=== PATIENT | female | born 1950 | race Caucasian/White ===

== ENCOUNTER 2021-10-15 11:01 | Inpatient (IN) | payer MEDICARE ==
[~2021-10-15] VITALS: Ht 172.7 cm; Wt 102.5 kg
--- NOTE | ~2021-10-15 | EMS ---
[place] [address] EMS Patient Care Report Name: KATHARINE ROCA Room #: 202-P ADM IN M.R.#: [id number] Admission: 10/15/21 Attend Phys: Gigi Wray MD Discharge: Date of : 50 Report #: [id number] THIS REPORT FOR: //name// Report Transmitted: 10/16/2021 13:30 EMS Care Summary [place], [place] Incident [id number] @ 10/15/2021 10:12 Incident Location [address] [place] [address] Patient KATHARINE ROCA Female, 70 Years 1950 Patient Address [address] [place] [address] Patient History Sepsis, Patient Allergies No known allergies, Patient Medications None Reported, Chief Complaint General malaise Disposition Transported No Lights/[place] Reason Sick Person Transported To [facility] Narrative Dispatched to a private residence in regards to a sick. On arrival, I saw patient laying prone on the living room floor covered in feces and urine. Initial assessment revealed that patient was A&Ox3 and did not appear to be in respiratory distress. Patient's chief complaint was general malaise since [address] [address] EMS Patient Care Report Name: KATHARINE ROCA Room #: 202-P [facility] IN Ismael#: [id number] Admission: 10/15/21 Attend Phys: Gigi Wray MD Discharge: Date of : 50 Report #: [id number] . Sister in law stated that she came over to check on the patient today and called 911 due to patient's condition. Sister in law also stated that patient was last normal Wednesday and she was sick and has gotten worse. Physical assessment revealed that patient was cool pale and dry. Patient was placed onto our cot inside the lounge and was taken to the ambulance and was lifted inside. Treatment rendered was obtaining a complete set of baseline vital signs including a blood glucose reading, 3 lead ECG monitoring 12 lead ECG tracing, administered 2 doses of Adenosine, synchronized cardioverted, and administered a fluid bolus. Patient was transported emergency to [facility] and radio report was given en route. Patient care was transferred on arrival. Initial Vitals @10:41P: 192,R: 20,BP: 126/99,Pain: 0/10,GCS: 14,Glucose: 146,SpO2: 87,Revised Trauma: 12,MA Suspected: false @10:52P: 229,R: 20,BP: 75/56,Pain: 0/10,GCS: 14,SpO2: 90,Revised Trauma: 10,MA Suspected: false Assessments @11:07MENTAL:Person Oriented,Place Oriented,Time Oriented,Event Oriented,SKIN:HEENT:LUNG SOUNDS:ABDOMEN:PELVIS//GI:EXTREMITIES:PULSE:NEURO:No Abnormalities, Impression Generalized Weakness Procedures @PTAALS Assessment Response: UnchangedSucceeded @10:35 IV Therapy - Saline Lock 0cc (20 ga) Site: Antecubital-Left Response: UnchangedFailed @10:37 IV Therapy - Saline Lock 10cc (18 ga) Site: Antecubital-Right Response: UnchangedSucceeded @10:36 IV Therapy - Saline Lock 0cc (22 ga) Site: Hand-Left Response: UnchangedFailed @10:44 Oxygen FlowRate: 15 Device: Non Re-breather Mask (NRB) Response: UnchangedSucceeded @10:44 12-Lead ECG Response: UnchangedSucceeded @10:51 Adenosine - 12 Milligrams (mg) - Intravenous (IV) Response: Unchanged @10:46 Adenosine - 12 Milligrams (mg) - Intravenous (IV) Response: Unchanged @10:30 IV Bolus - Normal Saline (.9% NaCl) 100cc (18 ga) Site: Antecubital-Right Response: UnchangedSucceeded @10:54 Response: ImprovedSucceeded 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 OPERATOR,ALS Assessment,Response: UnchangedSucceeded, [place] [address] EMS Patient Care Report Name: KATHARINE ROCAN Room #: 202-P [facility] IN ..#: [id number] Admission: 10/15/21 Attend Phys: Gigi Wray MD Discharge: Date of : 50 Report #: [id number] 10:11,Call Received 10:11,Dispatch Notified 10:12,Dispatched 10:13,En Route 10:18,On Scene 10:20,At Patient 10:30,IV Bolus - Normal Saline (.9% NaCl) 100cc 18 ga Site: Antecubital-Right,Response: UnchangedSucceeded, 10:35,IV Therapy - Saline Lock 0cc 20 ga Site: Antecubital-Left,Response: UnchangedFailed, 10:36,IV Therapy - Saline Lock 0cc 22 ga Site: Hand-Left,Response: UnchangedFailed, 10:37,IV Therapy - Saline Lock 10cc 18 ga Site: Antecubital-Right,Response: UnchangedSucceeded, 10:41,BP: 126/99 M,PULSE: 192,RR: 20 R,SPO2: 87 Ox,ETCO2: ,B,PAIN: 0,GCS: 14, 10:44,12-Lead ECG,Response: UnchangedSucceeded, 10:44,Oxygen FlowRate: 15 Device: Non Re-breather Mask (NRB) Response: UnchangedSucceeded, 10:46,Adenosine - 12 Milligrams (mg) - Intravenous (IV),Response: Unchanged 10:47,Depart Scene 10:51,Adenosine - 12 Milligrams (mg) - Intravenous (IV),Response: Unchanged 10:52,BP: 75/56 M,PULSE: 229,RR: 20 R,SPO2: 90 Ox,ETCO2: ,BG: ,PAIN: 0,GCS: 14, 10:54,Response: ImprovedSucceeded, 10:55,At Destination 11:11,Call Closed Disclaimer v1.1 Copyright 2020 [employer] This EMS Care Summary contains data elements from the applicable legal record (which may be displayed differently). It is designed to provide pertinent information for the following purposes: continuity of care, clinical quality, and state data reporting. The complete legal record is available to ED staff and administrators of the receiving hospital in [employer] Patient Tracker. All data is provided "as is."
[2021-10-15 11:31] LABS: MCH 25.9 pg (26.0-34.0); MCHC 31.5 g/dL (28.0-37.0); MCV 82.2 fL (80.0-100.0); PLATELET COUNT 342 thou/uL (150-400); RBC 4.62 mil/uL (4.20-5.00); RDW 18.5 % (10.5-14.5); WBC 25.7 thou/uL (4.0-11.0)
[2021-10-15 11:52] LABS: CALCIUM 8.4 mg/dL (8.5-10.1); CREATININE 1.9 mg/dL (0.6-1.0); POTASSIUM 3.6 mmol/L (3.5-5.1)
[2021-10-15 11:55] LABS: URINE BILIRUBIN NEGATIVE (Negative); URINE BLOOD 3+ (Negative); URINE CLARITY CLOUDY; URINE COLOR YELLOW; URINE GLUCOSE-RANDOM* NEGATIVE (Negative); URINE KETONES NEGATIVE (Negative); URINE LEUKOCYTES-REFLEX 3+ (Negative); URINE NITRITE-REFLEX POSITIVE (Negative); URINE PROTEIN (DIPSTICK) 2+ (Negative); URINE UROBILINOGEN 0.2 E.U./dl (0.2-1.0)
[2021-10-15 12:03] LABS: ALBUMIN 2.7 g/dL (3.4-5.0); DIRECT BILIRUBIN 0.1 mg/dL (<0.1-0.2); TOTAL BILIRUBIN 0.4 mg/dL (0.2-1.0); TOTAL PROTEIN 6.6 g/dL (6.4-8.2)
[2021-10-15 12:14] LABS: BACTERIA-REFLEX >30 Many /HPF (None Seen); CASTS None Seen /LPF (None Seen); SQUAMOUS 0-3 Few /LPF (0-3); URINE WBC-REFLEX >25 Many /HPF (0-5)
[2021-10-15 12:15] LABS: CRYSTALS None Seen /LPF (None Seen); URINE RBC 1-2 Rare /HPF (NONE SEEN); WBC CLUMPS Packed (None Seen)
[2021-10-15 15:07] LABS: ABSOLUTE NEUTROPHILS 24.4 thou/uL (1.4-8.2)
[2021-10-15 15:09] LABS: ANISOCYTOSIS 2+
[2021-10-15 18:04] VITALS: BP 108/61
--- NOTE | 2021-10-15 18:28 | NUR ---
O2 DECREASED TO 4L
[2021-10-15 19:27] VITALS: BP 147/70
[2021-10-15] MEDS ORDERED: OMEPRAZOLE 20 M20 M1 PO (21:36)
[2021-10-15 23:59] VITALS: BP 125/85
[2021-10-16] VITALS (7 sets, daily range): BP systolic 121–155; BP diastolic 65–88
--- NOTE | 2021-10-16 03:45 | NUR ---
Pt is an ER admit who presented ER with UTI. Pt is alert and oriented. Pt had fallen at home and was on the floor for two days until found by family. Batres in place. Admission assessment and documentation completed. Pt is stable through the night. Scheduled meds administered to pt. No acute event in place. Continue to monitor, no further needs at this time.
--- NOTE | 2021-10-16 07:43 | EKG ---
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
--- NOTE | 2021-10-16 07:47 | EKG ---
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 10/16/21 0747 1 1 Mannie Lilly MD, FACC /EPI
[2021-10-16 08:08] LABS: ALBUMIN 2.1 g/dL (3.4-5.0); CALCIUM 8.1 mg/dL (8.5-10.1); CREATININE 1.8 mg/dL (0.6-1.0); POTASSIUM 3.6 mmol/L (3.5-5.1); TOTAL BILIRUBIN 0.4 mg/dL (0.2-1.0); TOTAL PROTEIN 5.9 g/dL (6.4-8.2)
--- NOTE | 2021-10-16 10:20 | 2DMMODE ---
[facility] [address] [place] [address] 2 D/M-MODE ECHOCARDIOGRAM Name: KATHARINE ROCA Room #: 202-P ADM IN M.R.#: [id number] Admission: 10/15/21 Attend Phys: Gigi Wray MD Discharge: Date of : 50 Report #: [id number] THIS REPORT FOR: cc: FAM - Family physician unknown FAM - Family physician unknown Olaf Saul MD ~ APPROVED REPORT Study performed: 10/16/2021 08:12:21 EXAM: Comprehensive 2D, Doppler, and color-flow Echocardiogram Patient Location: Bedside Room #: 202 Status: routine BSA: 2.20 HR: 81 bpm BP: 155/87 mmHg Rhythm: NSR/Frequent PACs. Other Information Study Quality: Adequate Indications Afib RVR. 2D Dimensions RVDd: 35.89 mm IVSd: 10.30 (7-11mm) LVOT Diam: 20.21 (18-24mm) LVDd: 44.62 mm PWd: 9.97 (7-11mm) LVDs: 30.32 (25-40mm) Left Atrium: 36.89 (27-40mm) Aortic Root: 32.39 mm Volumes Left Atrial Volume (Systole) Single Plane 4CH: 73.18 mL Single Plane 2CH: 55.85 mL LA ESV Index: 32.00 mL/m2 Aortic Valve AoV Peak Mark.: 1.73 m/s AO Peak Gr.: 12.66 mmHg LVOT Max P.61 mmHg LVOT Max V: 1.36 m/s MORGAN Vmax: 2.52 cm2 [facility] [address] [place] [address] 2 D/M-MODE ECHOCARDIOGRAM Name: KATHARINE ROCA Room #: 202-P [facility] IN .#: [id number] Admission: 10/15/21 Attend Phys: Gigi Wray MD Discharge: Date of : 50 Report #: [id number] Mitral Valve E/A Ratio: 1.1 MV Decel. Time: 298.06 ms MV E Max Mark.: 1.24 m/s MV A Mark.: 1.15 m/s MV PHT: 86.44 ms IVRT: 55.36 ms Pulmonary Valve PV Peak Mark.: 1.16 m/s PV Peak Gr.: 5.42 mmHg Tricuspid Valve TR Peak Mark.: 3.14 m/s RAP Estimate: 10.00 mmHg TR Peak Gr.: 40.00 mmHg PA Pressure: 50.00 mmHg Left Ventricle The left ventricle is normal size. There is normal LV segmental wall motion. There is normal left ventricular wall thickness. Left ventricular systolic function is normal. LVEF is 60%. Moderate diastolic dysfunction is present (pseudonormal filling). Right Ventricle The right ventricle is normal size. The right ventricular systolic function is normal. Atria The left atrium size is normal. The right atrium size is normal. Aortic Valve Aortic valve is mildly calcified. No aortic regurgitation is present. There is no aortic valvular stenosis. Mitral Valve The mitral valve is normal in structure. Mild mitral regurgitation. Tricuspid Valve The tricuspid valve is normal in structure. Trace tricuspid regurgitation. Estimated PAP is 50mmHg. Pulmonic Valve Pulmonic valve is poorly visualized. [facility] [address] [place] [address] 2 D/M-MODE ECHOCARDIOGRAM Name: KATHARINE ROCA Room #: 202-P [facility] IN .R.#: [id number] Admission: 10/15/21 Attend Phys: Gigi Wray MD Discharge: Date of : 50 Report #: [id number] Great Vessels The aortic root is normal in size. Ascending aorta is not well visualized. IVC is normal in size and collapses <50% with inspiration. Pericardium There is no pericardial effusion. <Conclusion> The left ventricle is normal size. There is normal left ventricular wall thickness. Left ventricular systolic function is normal. Moderate diastolic dysfunction is present (pseudonormal filling). The right ventricle is normal size. The left atrium size is normal. Aortic valve is mildly calcified. Mild mitral regurgitation. Trace tricuspid regurgitation. Estimated PAP is 50mmHg. <ELECTRONICALLY SIGNED> By: Olaf Saul MD 10/16/21 1020 1020 1020 Olaf Saul MD /MARILIA
--- NOTE | 2021-10-16 14:38 | NUR ---
Case opened to follow for dc planning. District Or District Office Director visited with the pt at bedside. She is alert and orientedx 3 and reports feeling a little better. 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 She is normally indep with gait and adl's and has a little dog at home. She has one step to enter her home and does not use any dme. She has a rwalker and a w/c if needed. She reports a bad rt knee that makes her walk "stiff". She lives alone and has a son and sister in law locally that are supportive. She orders all her groceries and house hold items from [employer] and does not get out much. She does not have a Pcp. She has no hh or snf history. Possible need for hh or snf discussed as well as locating a pcp for f/u care. She is open to all of the above as long as they accept her ins plan. Referral to Greg SÁNCHEZ, appt setup with Dr. GONZALEZ at [facility] for 10/29/21 at 1:30pm and referral faxed to Mariela Amaro [facility]. PT/OT evals are pending. Pt's son Kennedy has called in but is not coming up to visit as he is not feeling well. Pt is being treated for UTI/Sepsis and is on iv atb/ivf. O2 now down to 2liters. Anticipated dc 2-3 days pending her progress.
--- NOTE | 2021-10-16 18:23 | NUR ---
Pt was A&0x4, VS stable and afebrile throughout shift. Pt was at times confused and expressed feeling overwhelmed by post discharge home arrangements. PT and OT consults have been entered for pt. Social Work spoke with pt and with pt's son about discharge and home arragmenet post discharge. Sister in-law was at bedside and has been added to pt's authorized contact list. Pt has excoriation on buttocks - currently managed with Z-guard and Q2 turns. Pt reported feeling febrile twice during shift - temp was checked and was 97.7 No concerns at this time. Continue to monitor.
[2021-10-17 01:16] LABS: HEMATOCRIT 29.4 % (37.0-47.0); MCH 26.1 pg (26.0-34.0); MCHC 32.3 g/dL (28.0-37.0); MCV 80.8 fL (80.0-100.0); RBC 3.64 mil/uL (4.20-5.00); RDW 18.6 % (10.5-14.5); WBC 13.9 thou/uL (4.0-11.0)
[2021-10-17 01:24] LABS: CALCIUM 7.4 mg/dL (8.5-10.1); CREATININE 1.5 mg/dL (0.6-1.0); PHOSPHORUS 2.6 mg/dL (2.5-4.9); POTASSIUM 3.6 mmol/L (3.5-5.1)
[2021-10-17 01:38] LABS: HEMOGLOBIN 9.5 gm/dL (12.0-15.0)
[2021-10-17 05:39] VITALS: BP 142/79
[2021-10-17 07:21] VITALS: BP 148/64
--- NOTE | 2021-10-17 08:46 | NUR ---
pt alert and oriented except a few times thru the noc found without o2 and needed reorientated and reminded to keep o2 on. vss, c/o heart burn received order for mylanta which resolved pt's complaint, no c/o pain thru the shift, repositioned as needed, will con't to monitor per ppoc.
--- NOTE | 2021-10-17 10:54 | NUR ---
SPOKE WITH [facility] RECEIVED FAX. WILL CALL [facility] WHEN ACCEPTED [facility]
[2021-10-17 11:08] VITALS: BP 122/68
[2021-10-17 15:30] VITALS: BP 143/62
--- NOTE | 2021-10-17 19:49 | NUR ---
Pt was A&0X4 and VS stable. Pt was febrile at 1630. Temp 101. Tylenol was given and when reassesd temp was 99.1 Pt worked with PT and OT. Ambulated around room and sat in chair for 3 hours. Sister in law was at bedside. RT assessed O2 needs and DC'd O2. When ambulating O2 sat was 90. pt is resting in bed. No current concerns. Continue to monitor.
[2021-10-17 20:15] VITALS: BP 153/69
[2021-10-18 04:29] LABS: HEMATOCRIT 31.2 % (37.0-47.0); HEMOGLOBIN 10.1 gm/dL (12.0-15.0); MCH 26.7 pg (26.0-34.0); MCHC 32.5 g/dL (28.0-37.0); MCV 82.2 fL (80.0-100.0); RBC 3.79 mil/uL (4.20-5.00); RDW 18.8 % (10.5-14.5); WBC 11.7 thou/uL (4.0-11.0)
[2021-10-18 04:40] LABS: CALCIUM 8.1 mg/dL (8.5-10.1); CREATININE 1.4 mg/dL (0.6-1.0); PHOSPHORUS 2.2 mg/dL (2.5-4.9); POTASSIUM 3.7 mmol/L (3.5-5.1)
[2021-10-18 04:45] VITALS: BP 136/63
--- NOTE | 2021-10-18 05:14 | NUR ---
PT LYING IN BED. LOW GRADE FEVER--TYLENOL GIVEN. DENIES PAIN. RESTING COMFORTABLY. NO NEEDS VOICED. CALL LIGHT WITHIN REACH. FREQUENT OBSERVATION.
[2021-10-18 07:43] VITALS: BP 147/56
[2021-10-18 11:00] VITALS: BP 149/44
[2021-10-18 15:00] VITALS: BP 156/65
[2021-10-18 19:38] VITALS: BP 146/90
[2021-10-19 04:23] VITALS: BP 147/63
--- NOTE | 2021-10-19 05:06 | NUR ---
assumed pt care at 1900, alert and oriented, c/o headache, tyl given with relief, remains incontinent of urine, external female catheter placed, 700cc out, assessments as charted, z-guard placed on the escoriations to bilateral buttocks, remains on iv abx, no reactions noted, denies needs at this time, slowly progressing towards goals , will continue to monitor per poc
[2021-10-19 07:30] VITALS: BP 186/92
[2021-10-19 15:09] VITALS: BP 143/81
--- NOTE | 2021-10-19 18:44 | NUR ---
Pt A&0x4, VS stable and afebrile throughout shift. Pt has been up x1 assist to the bedside commode and sat in chair for 3 hours. Sister in law was at bedside. Son called and wants Dr. Thompson to contact him. Paged Dr. Thompson and waiting for call back. Med/surg status change order not found. Heart monitor reapplied and cardiac monitoring in progress. Discharge to home with HH planned for 10/20/21. Skin on buttocks still excoriated - managed with zince paste and routine cleansing. No current concerns. Continue to monitor.
[2021-10-19 19:46] VITALS: BP 113/99
[2021-10-20 02:04] VITALS: BP 150/85
--- NOTE | 2021-10-20 03:13 | NUR ---
assumed pt care at 1900, alert and oriented, sr on tele, denies pain, remains incontinent of bladder, good urine output, frequent rounding completed, pt able to reposition self in bed, escoriation to bilateral buttocks covered with z-quard paste, pt told this nurse she is not feeling good, denies cp or sob, vital signs taken and as charted, pt expressed self that she is stessed about loosing her and she misses her, this nurse sat and talked with pt for about 10 mins, will benefit from pych consult, asessments as charted, will cont to monitor
[2021-10-20 04:13] VITALS: BP 143/58
[2021-10-20 07:15] VITALS: BP 147/65
[2021-10-20] MEDS ORDERED: CEFUROXIME500 MG PO (08:54)
[2021-10-20] MEDS ORDERED: METOPROLOL SUCC25 M1 PO (08:55)
--- NOTE | 2021-10-20 09:04 | NUR ---
WOUND CONSULT; THE BILATERAL BUTTOCKS HAS RESOLVING ESCORIATIONS. CURRENTLY USING ZGUARD WHICH IS EFFECTIVE. THERE IS NO S/S OF INFECTION. RECOMMENDATION; THERE IS NO NEED TO FOLLOW THIS PATIENT. DISCUSSED WITH RN.
[2021-10-20 11:03] VITALS: BP 136/59
[2021-10-20 11:27] VITALS: BP 126/66
--- NOTE | 2021-10-20 12:08 | NUR ---
Pt discharged and left unit at 1200. Pt A&0x4, VS stable and afebrile. No complaints of pain. Discharge education provided and pt communicated understanding. Pt made aware of appointment with new PCP on . No current concerns.
--- NOTE | 2021-10-20 13:29 | NUR ---
PT DISCHARGED HOME WITH [facility] . THIS CM SPOKE TO PTS SON OVER THE PHONE AND ANSWERED QUESTIONS REGARDING HH. PT SISTER AND LAW TRANSPORTED PT HOME. PT HAS PCP APPT 10-29-20.
== END 2021-10-20 12:08 | disposition home health service (06) | DRG 871 ==
LOC: ER 11:01 → EROBS 15:50 → 2N 15:50
PROVIDERS: Hospitalist; Nurse Practitioner Adult Health; Student in an Organized Health Care Education/Training Program; ADMIT Hospitalist; ATTEND Hospitalist
DX: A41.9 Sepsis, unspecified organism (principal); J96.20 Acute and chronic respiratory failure, unspecified whether with hypoxia or hypercapnia; G93.41 Metabolic encephalopathy; N12 Tubulo-interstitial nephritis, not specified as acute or chronic; I47.1 Supraventricular tachycardia; N17.9 Acute kidney failure, unspecified; E87.1 Hypo-osmolality and hyponatremia; I48.91 Unspecified atrial fibrillation; M19.90 Unspecified osteoarthritis, unspecified site; E66.9 Obesity, unspecified; B96.20 Unspecified Escherichia coli [E. coli] as the cause of diseases classified elsewhere; F17.210 Nicotine dependence, cigarettes, uncomplicated; N18.9 Chronic kidney disease, unspecified; I49.1 Atrial premature depolarization; Z20.822 Contact with and (suspected) exposure to COVID-19; Z79.01 Long term (current) use of anticoagulants; Z88.0 Allergy status to penicillin; Z68.34 Body mass index [BMI] 34.0-34.9, adult
CPT/HCPCS: 10081

== ENCOUNTER → 2021-11-11 | Outpatient (CLI) | payer MEDICARE ==
[~2021-11-11] MED LIST: CEFUROXIME500 MG PO; METOPROLOL SUCC25 M1 PO; OMEPRAZOLE 20 M20 M1 PO
== END ==
LOC: SJCVC 14:29
PROVIDERS: ATTEND Internal Medicine Cardiovascular Disease
DX: R94.31 Abnormal electrocardiogram [ECG] [EKG] (principal); I47.1 Supraventricular tachycardia; I49.3 Ventricular premature depolarization; I10 Essential (primary) hypertension; K21.9 Gastro-esophageal reflux disease without esophagitis; F17.210 Nicotine dependence, cigarettes, uncomplicated; R60.9 Edema, unspecified; Z88.0 Allergy status to penicillin; Z88.1 Allergy status to other antibiotic agents; Z79.899 Other long term (current) drug therapy

== ENCOUNTER → 2021-11-24 | Outpatient (CLI) | payer MEDICARE | LOC: SJCVCIMAG 07:21 | PROVIDERS: ATTEND Internal Medicine Cardiovascular Disease | DX: R94.31 Abnormal electrocardiogram [ECG] [EKG] (principal); I47.1 Supraventricular tachycardia; I10 Essential (primary) hypertension; R60.9 Edema, unspecified; F17.200 Nicotine dependence, unspecified, uncomplicated; K21.9 Gastro-esophageal reflux disease without esophagitis; Z79.899 Other long term (current) drug therapy; Z88.0 Allergy status to penicillin; Z88.1 Allergy status to other antibiotic agents ==